=== PATIENT | female | born 1955 | race Caucasian/White ===

== ENCOUNTER 2016-11-16 11:19 | Emergency (ER) | payer OTHER ==
[~2016-11-16] VITALS: Ht 162.6 cm; Wt 56.2 kg
[~2016-11-16 11:19] MED LIST: BACLOFEN10 MG PO; CALCIUM + VITA1 EAC2 PO; CARVEDILOL3.125 MG PO; MULTIPLE VITAM1 EACH PO; NAPROXEN500 MG PO; NOHOMEMEDS; NORCO 5/3251 TABLET PO; TIROSINT50 MCG PO; VALIUM5 MG PO
[2016-11-16 14:48] VITALS: BP 122/79
== END 2016-11-16 14:49 | disposition home or self-care (01) ==
LOC: EME 11:19 → RME 11:19
DX: M79.662 Pain in left lower leg (principal); Z98.890 Other specified postprocedural states; E03.9 Hypothyroidism, unspecified; Z85.3 Personal history of malignant neoplasm of breast; Z87.891 Personal history of nicotine dependence
CPT/HCPCS: 93971; 99281; 99284